=== PATIENT | female | born 1960 | race Caucasian/White ===

== ENCOUNTER 2018-07-05 00:31 | Emergency (ER) | payer MEDICAID ==
[2018-07-05] MEDS ORDERED: Alum Hydrox/Mag Hydrox/Simeth 15 ML, Lidocaine 2% 15 ML PO ONE ×2 (00:41)
--- NOTE | 2018-07-05 00:53 | EDM.PDOC ---
ED HPI GENERAL MEDICAL PROBLEM - General Chief Complaint: Chest Pain Stated Complaint: CHEST PAIN Time Seen by Provider: 07/05/18 00:53 Source of Information: Reports: Patient, EMS, Family, RN Notes Reviewed History Limitations: Reports: No Limitations - History of Present Illness INITIAL COMMENTS - FREE TEXT/NARRATIVE: 57-year-old female presents emergency department day complaint of epigastric pain, she has a known history of reflux disease was taking her medications earlier tonight felt like something got stuck had difficulty swallowing and then sudden onset of chest pain feels nauseated no diaphoresis no shortness of breath does have a coronary artery history with stenting last year times 4 Middle Sternum Pain Score (Numeric/FACES): 6 - Related Data Allergies Allergy/AdvReac Type Severity Reaction Status Date / Time sumatriptan [From Imitrex] Allergy Other Verified 07/05/18 00:49 Past Medical History Cardiovascular History: Reports: CAD, High Cholesterol, Hypertension Social & Family History - Tobacco Use Smoking Status *Q: Never Smoker ED ROS GENERAL - Review of Systems Review Of Systems: See Below Constitutional: Reports: No Symptoms HEENT: Reports: No Symptoms Respiratory: Reports: No Symptoms Cardiovascular: Reports: Chest Pain GI/Abdominal: Reports: Abdominal Pain (Epigastric pain) : Reports: No Symptoms Musculoskeletal: Reports: No Symptoms Skin: Reports: No Symptoms ED EXAM, GENERAL - Physical Exam Exam: See Below Exam Limited By: No Limitations General Appearance: Alert, WD/WN, No Apparent Distress Head: Atraumatic, Normocephalic Neck: Normal Inspection, Supple, Non-Tender, Full Range of Motion Respiratory/Chest: No Respiratory Distress, Lungs Clear, Normal Breath Sounds, No Accessory Muscle Use, Other (Chest tender to palpation in epigastric region) Cardiovascular: Regular Rate, Rhythm, No Murmur GI/Abdominal: Soft, Non-Tender Course - Vital Signs Last Recorded V/S: Last Vital Signs Temp 96.8 F 07/05/18 01:35 Pulse 78 07/05/18 01:35 Resp 16 07/05/18 01:35 BP 127/64 07/05/18 01:35 Pulse Ox 98 07/05/18 01:35 - Orders/Labs/Meds Orders: Active Orders 24 hr Category Date Time Status Cardiac Monitoring [RC] .As Directed Care 07/05/18 00:53 Active Labs: Laboratory Tests 07/05/18 07/05/18 07/05/18 Range/Units 00:53 00:53 00:55 WBC 9.8 (4.5-11.0) K/uL RBC 4.26 (3.30-5.50) M/uL Hgb 11.6 L (12.0-15.0) g/dL Hct 37.0 (36.0-48.0) % MCV 87 (80-98) fL MCH 27 (27-31) pg MCHC 31 L (32-36) % Plt Count 224 (150-400) K/uL Neut % (Auto) 64 (36-66) % Lymph % (Auto) 25 (24-44) % [place] % (Auto) 9 H (2-6) % Eos % (Auto) 2 (2-4) % Baso % (Auto) 0 (0-1) % Sodium 140 (140-148) mmol/L Potassium 3.8 (3.6-5.2) mmol/L Chloride 104 (100-108) mmol/L Carbon Dioxide 26 (21-32) mmol/L Anion Gap 9.9 (5.0-14.0) mmol/L BUN 24 H (7-18) mg/dL Creatinine 1.3 H (0.6-1.0) mg/dL Est Cr Clr Drug Dosing 38.22 mL/min Estimated GFR (MDRD) 42 L (>60) Glucose 107 H (74-106) mg/dL Lactic Acid 1.6 (0.4-2.0) mmol/L Calcium 9.2 (8.5-10.1) mg/dL Total Bilirubin 0.2 (0.2-1.0) mg/dL AST 22 (15-37) U/L ALT 40 (12-78) U/L Alkaline Phosphatase 90 (46-116) U/L CK-MB (CK-2) 1.7 (0-3.6) mg/mL Troponin I < 0.017 (0.000-0.056) ng/mL Total Protein 6.8 (6.4-8.2) g/dL Albumin 3.6 (3.4-5.0) g/dL Globulin 3.2 (2.3-3.5) g/dL Albumin/Globulin Ratio 1.1 L (1.2-2.2) Lipase 135 (73-393) U/L Meds: Medications Discontinued Medications Generic Name Dose Route Start Last Admin Trade Name Keny PRN Reason Stop Dose Admin Al Hydroxide/Mg Hydroxide 15 0 ml 07/05/18 00:41 07/05/18 00:45 ml/ Lidocaine HCl 15 ml PO 07/05/18 00:42 30 ml ONETIME ONE Administration Departure - Departure Time of Disposition: 02:12 Disposition: Home, Self-Care 01 Condition: Fair Clinical Impression: Dysphagia Qualifiers: Dysphagia type: esophageal phase Qualified Code(s): R13.10 - Dysphagia, unspecified Referrals: Thao Murillo PA-C [Primary Care Provider] - Forms: ED Department Discharge Additional Instructions: Please followup with your primary care provider in 3-5 days if not better, please call return to the emergency department with worsening of symptoms. - My Orders Last 24 Hours: My Active Orders 07/05/18 00:53 Cardiac Monitoring [RC] .As Directed - Assessment/Plan Last 24 Hours: My Active Orders 07/05/18 00:53 Cardiac Monitoring [RC] .As Directed Plan: Assessment Acuity = acute Site and laterality = dysphagia Etiology = secondary to medication Manifestations = none Location of injury = Home Lab values = CBC, CMP unremarkable troponin is negative CK-MB is also negative EKG demonstrates sinus rhythm there is no ST elevations or depressions Plan She had good relief with the GI cocktail, aspirin and nitroglycerin were provided in the ambulance, plan is discharge home follow-up primary 3-5 days if not better This note was dictated using [employer] voice recognition software please call with any questions on syntax or grammar.
== END 2018-07-05 02:28 | disposition home or self-care (01) ==
LOC: JP.ED 00:31
DX: R13.10 Dysphagia, unspecified (principal); I10 Essential (primary) hypertension; Z88.8 Allergy status to other drugs, medicaments and biological substances
CPT/HCPCS: 36415; 80053; 82553; 83605; 83690; 84484; 85025; 99284; A9270